=== PATIENT | male | born 1940 | race Caucasian/White ===

== ENCOUNTER 2017-09-22 22:25 | Observation (INO) | payer MEDICARE, BC ==
[2017-09-22 23:31] LABS: #Lymphocytes 0.4 thou/uL (1.20-3.40); #Monocytes 0.3 thou/uL (0.11-0.59); #Neutrophils 2.4 thou/uL (1.40-6.50); %Lymphocytes 12.5 % (21.0-51.0); %Monocytes 8.2 % (0.0-10.0); Hematocrit 41.6 % (42.0-52.0); Mean Platelet Volume 7.7 fL (7.4-10.4); Red Blood Cell (RBC) Count 4.57 mill/uL (4.70-6.10); White Blood Cell (WBC) Count 3.1 thou/uL (4.8-10.8)
[2017-09-22 23:50] LABS: ALT (SGPT) 9 U/L (8-55); AST (SGOT) 9 U/L (5-34); Alkaline Phosphatase 188 U/L (40-150); Anion Gap 20 mmol/L (10-20); BUN (Urea Nitrogen) 42 mg/dL (8.4-25.7); Bilirubin, Total 0.6 mg/dL (0.2-1.2); Calc. Creatinine Clearance 0 mL/min (70-130); Calcium 8.9 mg/dL (7.8-10.44); Carbon Dioxide 20 mmol/L (23-31); Chloride 104 mmol/L (98-107); Estimated GFR-MDRD 53; Globulin 3.5 g/dL (2.4-3.5); Protein, Total 6.8 g/dL (5.8-8.1)
[2017-09-22 23:52] LABS: Troponin I Less than 0.010 ng/mL (< 0.028)
[2017-09-22 23:59] LABS: Bilirubin Negative (Negative); Blood, Urine Large (Negative); Glucose, Urine (Dipstick) Negative (Negative); Ketone, Urine Negative (Negative); Nitrite Negative (Negative); Protein, Urine (Dipstick) 100 mg/dL (Neg-Trace); Urobilinogen 0.2 mg/dL (0.2-1.0)
[2017-09-23 00:01] LABS: Bacteria/HPF 4+ HPF (None Seen); RBC/HPF 21-50 HPF (0-3); Squamous Epithelial None Seen HPF (0-3)
[2017-09-23 00:19] LABS: Hyaline Casts/LPF NONE SEEN LPF (0-3 Hyaline); Yeast-All Forms None Seen HPF (None Seen)
[2017-09-23 00:23] LABS: Renal Epithelial None Seen HPF (0-3); Transitional Epithelial NONE SEEN HPF (0-3)
[2017-09-23 00:59] LABS: Lactic Acid - Sepsis 3.3 mmol/L (0.5-2.2)
[2017-09-23] MEDS ORDERED: cefTRIAXone\\ROCEPHIN 2 GM in Sodium Chloride 0.9% 100 ML IVPB SCH (01:00)
[2017-09-23] MEDS ORDERED: HYDROcodone/Acetaminophen 10/325 mg Tablet ONE ×2 (01:22→06:14)
[2017-09-23] MEDS ORDERED: Ondansetron HCl/PF 4 MG/2 ML Vial IVP PRN (07:34)
[2017-09-23] MEDS ORDERED: Acetaminophen 325 MG TAB PO PRN (07:34)
[2017-09-23] MEDS ORDERED: Zolpidem Tartrate 5 MG TAB PO PRN (07:34)
[2017-09-23] MEDS ORDERED: cefTRIAXone\\ROCEPHIN 1 GM in Sodium Chloride 0.9% 100 ML IVPB SCH (07:45)
--- NOTE | 2017-09-23 08:12 | HP ---
PRIMARY CARE PROVIDER[facility] [place] CHIEF COMPLAINT: Referred to the [facility] by [facility]. CHIEF COMPLAINT: Knot in groin. HISTORY OF PRESENT ILLNESS: The patient states he had an IVC filter put in to his right groin for a blood clot. This procedure was done in [place]. He states he subsequently developed a painful kno t in his right groin and was told it was from a hemorrhage. He has also had marked dysuria and some hematuria with it. He denies any fever, sweats or chills. PAST MEDICAL HISTORY: Lung cancer, post right lung resection in April of this year, planned chemothe rapy. Twenty-five years ago he had a bladder, prostate cancer surgery which he states they made him on artificial bladder. He has had hypertension. No history of heart disease, diabetes. CURRENT MEDICATIONS: Currently include metoprolol 25 mg twice a day, olanzapine 5 mg a day, Senexon 8.6 mg twice a day, Burchard 10/325 one every 4 hours for pain, and zinc tablets. ALLERGIES: No known drug allergies. FAMILY HISTORY: Mother of old age at 94. Father young of coronary artery disease. SOCIAL HISTORY: , quit smoking earlier this year. Drinks occasional alcohol, has had none in 7-8 months. CODE STATUS: Full code status. He states he has 2 daughters and a son who are next of kin for ryan cast. REVIEW OF SYSTEMS: GENERAL: No fever, sweats, chills, no headaches, dizziness or fainting. EYES: No double vision, blurred vision, flashing lights. ENT: No ear pain or drainage. No nasal bleeding. No trouble swallowing. CARDIAC: No chest pain, orthopnea or paroxysmal nocturnal dyspnea. RESPIRATIONS: He has dyspnea on exertion since his lung cancer surgery, an occasional dry cough. N o chest pain. GASTROINTESTINAL: No nausea, vomiting, diarrhea or constipation. GENITOURINARY: Pain on urination recently and hematuria. MUSCULOSKELETAL: He has pain in his left leg above the knee that comes and goes. No swelling in hi s legs. NEUROLOGIC: No strokes, seizures or focal weakness. PSYCHIATRIC: No anxiety, depression issues current. SKIN: Easy bruising, no rash. HEME/LYMPH: No tender or swollen lymph nodes in axilla, inguinal or cervical area. NEUROLOGICAL: He has had the aforementioned swelling post-filter placement in his right groin. PHYSICAL EXAMINATION: GENERAL: The patient is alert, oriented, cooperative, pleasant gentleman looking chronically ill. VITAL SIGNS: Blood pressure 121/63, pulse is in the 90+ minus range, respirations 15-19 and unlabor ed, O2 sat 100 on room air. HEENT: Pupils equal, round, and reactive. Extraocular movements grossly intact. Sclerae white. T ympanic membranes clear. Nose clear. Oral mucous membranes are wet. NECK: No jugular venous distention, adenopathy or thyromegaly. CHEST: Dull on the right side to percussion. Decreased breath sounds with scattered rhonchi on the left. HEART: Heart had a regular rate and rhythm, no murmurs, no gallops were appreciated. First and sec ond heart sounds are clear. ABDOMEN: Soft, bowel sounds normal. No hepatosplenomegaly, no mass, no rebound. EXTREMITIES: Show no cyanosis, clubbing or edema. SKIN: Warm and dry with ecchymoses on his forearms, actinic changes diffusely. HEME/LYMPH: No tender or swollen lymph nodes in axilla, inguinal or cervical area. His right groin does demonstrate evidence of resolving hematoma, but there is no current hematoma. PULSES: Carotid and radial pulses were grossly symmetric. His left pulse is diminished compared to the right in the femoral area and the pedal pulses were markedly diminished bilaterally. NEUROLOGICAL: Cranial nerves II-XII are intact. Deep tendon reflexes symmetric. STUDIES: No chest x-ray presented and one will be ordered. LABORATORY: White count 3.1, platelet count 129,000, hemoglobin 13.3. Cardiac enzymes normal. Blo od sugar 111, calcium 8.9, alkaline phosphatase 188, OT, PT normal. Creatinine 1.31, BUN 42, potass ium chloride normal, CO2 20, initial lactic acid elevated at 3.3. Urinalysis, too many to count whi te cells, positive red cells, positive leukocyte esterase. ADMITTING DIAGNOSES: 1. Urinary tract infection with hematuria, dysuria. 2. Lung carcinoma post right lung resection. 3. Status post pulmonary embolus, deep vein thrombosis of the left leg post-IVC filter. 4. Post prostate/bladder cancer surgery 25 years ago. 5. Hypertension. 6. Chronic pain, on Burchard 10/325 once a day q.6h. PLAN: The patient tentatively scheduled for inpatient telemetry. I see no necessity that after he would be put in on observation. Urine culture has been obtained. Rocephin will be started, Burchard w ill be continued. Follow up lactic acid will be obtained. Follow up basic metabolic profile will b e obtained. IV fluids will be administered.
[2017-09-23 09:55] VITALS: BMI 14.3
[2017-09-23] MEDS: Sodium Chloride 0.9% 1,000 ML IV SCH ×3 (10:15→20:31)
[2017-09-23] MEDS: HYDROcodone/Acetaminophen 10/325 mg Tablet PO PRN ×3 (12:02→20:35)
[2017-09-23] MEDS ORDERED: HYDROcodone/Acetaminophen 10/325 mg Tablet PO PRN (17:02)
[2017-09-23] MEDS ORDERED: OLANZapine 5 MG TAB PO PRN (17:02)
[2017-09-23] MEDS ORDERED: Senokot S 8.6-50 MG TAB PO PRN (17:38)
[2017-09-23] MEDS ORDERED: fentaNYL 50 mcg/hour Patch FS SCH (18:00)
[2017-09-23] MEDS: Metoprolol Tartrate 25 MG TAB PO SCH (20:31)
[2017-09-23] MEDS ORDERED: FLU VACC TS2017-18 (>65YR) 0.5 ML SYRINGE IM ONE (21:00)
[2017-09-24] MEDS ORDERED: cefTRIAXone\\ROCEPHIN 1 GM, Syringe 0.4 ML in Sterile Water 9.6 ML SLOW IVP SCH (01:00)
[2017-09-24] MEDS: Sodium Chloride 0.9% 1,000 ML IV SCH ×2 (03:35→06:41)
[2017-09-24 04:50] LABS: Anion Gap 9 mmol/L (10-20); BUN (Urea Nitrogen) 26 mg/dL (8.4-25.7); Calc. Creatinine Clearance 61 mL/min (70-130); Calcium 7.7 mg/dL (7.8-10.44); Carbon Dioxide 24 mmol/L (23-31); Chloride 112 mmol/L (98-107); Estimated GFR-MDRD Greater than 90
--- NOTE | 2017-09-24 07:29 | PDOC.PN ---
- Subjective Encounter Start Date: 09/24/17 Encounter Start Time: 07:27 Patient seen and examined. No new complaints. No overnight events - Objective Resuscitation Status: Resuscitation Status FULL:Full Resuscitation MAR Reviewed: Yes Vital Signs & Weight: Vital Signs (12 hours) Temp Pulse Resp BP Pulse Ox 09/24/17 05:55 98.0 F 65 16 113/62 100 09/24/17 00:00 97.9 F 75 18 106/57 L 100 09/23/17 20:00 97.9 F 84 16 113/63 100 Weight Admit Weight 105 lb 15.968 oz Weight 105 lb 15.968 oz Result Diagrams: 09/22/17 23:19 09/24/17 03:41 Phys Exam - Physical Examination Constitutional: NAD HEENT: PERRLA, moist MMs, sclera anicteric Neck: no JVD, supple Respiratory: no rales, wheezing present Cardiovascular: RRR, no significant murmur, no rub Gastrointestinal: soft, non-tender, no distention, positive bowel sounds Musculoskeletal: no edema, pulses present Neurological: non-focal, normal sensation Lymphatic: no nodes Psychiatric: normal affect Skin: no rash, normal turgor Dx/Plan (1) UTI (urinary tract infection) Status: Acute (2) Acute kidney failure Status: Resolved (3) Lactic acidosis Code(s): E87.2 - ACIDOSIS Status: Resolved (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 - MALIGNANT NEOPLASM OF UNSP PART OF UNSP BRONCHUS OR LUNG Status: Chronic (5) Protein-calorie malnutrition, moderate Code(s): E44.0 - MODERATE PROTEIN-CALORIE MALNUTRITION Status: Chronic (6) Pancytopenia Code(s): D61.818 - OTHER PANCYTOPENIA Status: Acute (7) H/O prostate cancer Code(s): Z85.46 - PERSONAL HISTORY OF MALIGNANT NEOPLASM OF PROSTATE Status: Chronic (8) History of pulmonary embolism Code(s): Z86.711 - PERSONAL HISTORY OF PULMONARY EMBOLISM Status: Chronic - Plan cont current plan of care, continue antibiotics * continue rocephin * on discharge will change to macrobid as per & S result * continue IVF * medication reviewed as below * symptomatic treatment * discharge possible later today. Review of Systems - Review of Systems ENT: negative: Ear Pain, Ear Discharge, Nose Pain, Nose Discharge, Nose Congestion, Mouth Pain, Mouth Swelling, Throat Pain, Throat Swelling, Other Respiratory: negative: Cough, Dry, Shortness of Breath, Hemoptysis, SOB with Excertion, Pleuritic Pain, Sputum, Wheezing Cardiovascular: negative: Chest Pain, Palpitations, Orthopnea, Paroxysmal Noc. Dyspnea, Edema, Light Headedness, Other Gastrointestinal: negative: Nausea, Vomiting, Abdominal Pain, Diarrhea, Constipation, Melena, Hematochezia, Other Genitourinary: negative: Dysuria, Frequency, Incontinence, Hematuria, Retention , Other Musculoskeletal: negative: Neck Pain, Shoulder Pain, Arm Pain, Back Pain, Hand Pain, Leg Pain, Foot Pain, Other Skin: negative: Rash, Lesions, Rc, Bruising, Other - Medications/Allergies Allergies/Adverse Reactions: Allergies Allergy/AdvReac Type Severity Reaction Status Date / Time No Known Drug Allergies Allergy Verified 09/23/17 09:53 Medications: Current Medications Acetaminophen (Tylenol) 650 mg PO Q4H PRN PRN Reason: Headache/Fever or Pain Hydrocodone Bitart/Acetaminophen (Blanchard 10/325) 1 tab PO Q4H PRN PRN Reason: Moderate Pain (4-6) Last Admin: 09/23/17 20:35 Dose: 1 tab Hydrocodone Bitart/Acetaminophen (Blanchard 10/325) 1 tab PO Q4HR PRN PRN Reason: Pain Fentanyl (Duragesic) 50 mcg FS Q48H [facility] Last Admin: 09/23/17 17:53 Dose: 50 mcg Sodium Chloride (Normal Saline 0.9%) 1,000 mls @ 100 mls/hr IV .Q10H [facility] Last Admin: 09/24/17 06:41 Dose: 1,000 mls Ceftriaxone Sodium 1 gm/ (Syringe 0.4 ml/ Sterile Water) 10 mls @ 120 mls/hr SLOW IVP 0100 [facility] Last Admin: 09/24/17 02:18 Dose: 10 mls Metoprolol Tartrate (Lopressor) 25 mg PO BID [facility] Last Admin: 09/23/17 20:31 Dose: 25 mg Olanzapine (Zyprexa) 5 mg PO Q6H PRN PRN Reason: Anxiety Ondansetron HCl (Zofran) 4 mg IVP Q6H PRN PRN Reason: Nausea/Vomiting Senna/Docusate Sodium (Senokot S) 1 tab PO BID PRN PRN Reason: Constipation Sodium Chloride (Flush - Normal Saline) 10 ml IVF Q12HR [facility] Last Admin: 09/23/17 20:32 Dose: Not Given Sodium Chloride (Flush - Normal Saline) 10 ml IVF PRN PRN PRN Reason: Saline Flush Zinc Sulfate (Zinc Sulfate) 220 mg PO DAILY [facility] Zolpidem Tartrate (Ambien) 5 mg PO HSPRN PRN PRN Reason: Insomnia
[2017-09-24 07:56] VITALS: BP 132/76; TEMP 98
[2017-09-24] MEDS: Metoprolol Tartrate 25 MG TAB PO SCH (07:59)
[2017-09-24] MEDS ORDERED: Zinc Sulfate 220 MG CAP PO SCH (09:00)
--- NOTE | 2017-09-24 10:21 | DIS ---
PRIMARY CARE PHYSICIAN: Dr. Yoseph Cox DATE OF ADMISSION: 09/23/2017 DATE OF DISCHARGE: 09/24/2017 DISCHARGE DISPOSITION: Home. PRIMARY DISCHARGE DIAGNOSES: 1. Urinary tract infection. 2. Lactic acidosis, improved. 3. Acute kidney failure, improved. 4. Dehydration, corrected. SECONDARY DISCHARGE DIAGNOSES: Pancytopenia, bronchogenic carcinoma, history of prostate cancer, his tory of pulmonary embolism. Moderate protein calorie malnutrition. PRIMARY PROCEDURE/OPERATION: None. RADIOLOGICAL INVESTIGATION: None. SIGNIFICANT LABORATORY: Please see [facility] for further details. His urine culture grew E. coli whi ch was sensitive to Macrobid. DISCHARGE MEDICATIONS: The only new medication prescription is given is Macrobid 100 mg twice daily. Rest of medication will be continued as per previous. CONTRAINDICATIONS: None. CODE STATUS: FULL CODE. INPATIENT CONSULTANTS: None. ALLERGIES: No known drug allergy. DISCHARGE PLAN: Post hospital, the patient will follow up with primary care physician. HOSPITAL COURSE: This patient was admitted by Dr. Haddad. Please see his H&P for further details. T he patient was admitted for urinary tract infection. On admission, he had lactic acidosis, dehydrati on and acute kidney injury. He was given IV fluid. He was given Rocephin while in hospital. On dis charge, we changed to Macrobid based on culture and sensitivity result. The patient is doing very well. The patient is tolerating p.o. well. The patient is seen and examin ed at bedside today. Please see my progress from today for further details. New medication prescrip tion given and patient is medically stable for discharge today.
== END 2017-09-24 11:02 | disposition home or self-care (01) ==
LOC: ERS 22:25 → ERHOLD 09-23 00:42 → INTOOBSV 09-23 00:42 → T4-B 09-23 09:26
PROVIDERS: ADMIT Internal Medicine; ATTEND Internal Medicine
DX: N39.0 Urinary tract infection, site not specified (principal); E87.2 Acidosis; E86.0 Dehydration; N17.9 Acute kidney failure, unspecified; D61.818 Other pancytopenia; C34.90 Malignant neoplasm of unspecified part of unspecified bronchus or lung; E44.0 Moderate protein-calorie malnutrition; Z68.1 Body mass index [BMI] 19.9 or less, adult; Z87.891 Personal history of nicotine dependence; Z85.46 Personal history of malignant neoplasm of prostate; Z86.711 Personal history of pulmonary embolism
CPT/HCPCS: 51701; 80048; 80053; 81003; 81015; 82553; 83605; 84484; 85025; 87040; 87077; 87086; 87186; 93005; 96361 ×2; 96365; 96375; 99285; G0378; 36415; A4216; J0696; J7050